=== PATIENT | female | born 1995 | race Caucasian/White ===

== ENCOUNTER 2019-06-11 11:07 | Emergency (ER) | payer SELFPAY ==
[~2019-06-11] VITALS: Ht 157.5 cm; Wt 70.5 kg
[2019-06-11 11:27] VITALS: TEMP 97.9
[2019-06-11] MEDS ORDERED: PHENTERMINE15 MG PO (13:07)
[2019-06-11 13:09] LABS: BASO % 0.3 % (0.0-2.0); EOS # 0.1 (0.0-0.7); EOS % 1.2 % (0-4.0); GRAN # 7.6 (1.4-6.5); GRAN % 67.8 % (42.2-75.2); HEMATOCRIT 43.6 % (37.0-47.0); HEMOGLOBIN 14.5 g/dl (12.5-16.0); LYMPH # 2.9 (1.2-3.4); LYMPH % 26.3 % (20.0-51.0); MEAN CELL VOLUME 87 fl (80.0-100.0); MEAN CORPUSCULAR HEMOGLOBIN 29 pg (27.0-31.0); MEAN CORPUSCULAR HGB CONC 33 g/dl (33.0-37.0); MEAN PLATELET VOLUME 9.3 fl (7.4-10.4); MONO # 0.5 (0.1-0.6); MONO % 4.1 % (1.7-9.3); PLATELET COUNT 400 K/mm3 (130-400); RED BLOOD COUNT 5.01 M/mm3 (4.10-5.30); REDCELL DISTRIBUTION WIDTH-CV 12.6 % (11.5-14.5)
[2019-06-11 13:20] LABS: ALBUMIN 5.1 gm/dL (3.5-5.0); BILIRUBIN,TOTAL 0.5 mg/dL (0.0-1.0); C-REACTIVE PROTEIN 1.6 mg/dL (0.0-0.9); CALCIUM 10.3 mg/dL (8.4-10.2); CREATININE, serum 0.56 (0.52-1.25); POTASSIUM 4.2 mmol/L (3.4-5.0); TOTAL PROTEIN 9.2 gm/dL (6.4-8.2)
[2019-06-11 13:51] LABS: COLLECTION METHOD CLEAN CATCH
[2019-06-11 13:57] LABS: MUCOUS Present /lpf; PH 6 (5-8); URINE APPEARANCE Clear; URINE BACTERIA Rare /hpf; URINE BILIRUBIN Negative (NEGATIVE); URINE BLOOD Negative (NEGATIVE); URINE COLOR Yellow; URINE GLUCOSE Negative (NEGATIVE); URINE KETONE Trace (NEGATIVE); URINE LEUKOCYTE ESTERASE Negative (NEGATIVE); URINE NITRATE Negative (NEGATIVE); URINE PROTEIN(semi-quant) Negative (NEGATIVE); URINE UROBILINOGEN Negative (NEGATIVE)
[2019-06-11 14:41] VITALS: BP 135/75; PULSE 80
== END 2019-06-11 14:41 | disposition home or self-care (01) ==
LOC: COL.ER 11:07
PROVIDERS: Physician Assistant
DX: R10.11 Right upper quadrant pain (principal)
CPT/HCPCS: J2405; J7030

== ENCOUNTER 2021-11-05 18:52 | Emergency (ER) | payer SELFPAY ==
[~2021-11-05] VITALS: Ht 157.5 cm; Wt 77.3 kg
[~2021-11-05 18:52] MED LIST: PHENTERMINE15 MG PO
[2021-11-05 19:01] VITALS: TEMP 97.2
[2021-11-05 19:41] LABS: COLLECTION METHOD CLEAN CATCH
[2021-11-05 19:56] LABS: MUCOUS Present (NOT PRESENT); PH 7 (5-8); SQUAMOUS EPITHELIAL 0-2 /hpf (0-10); URINE APPEARANCE Clear (CLEAR/HAZY); URINE BACTERIA Rare /hpf (NONE SEEN); URINE BILIRUBIN Negative (NEGATIVE); URINE BLOOD Negative (NEGATIVE); URINE COLOR Straw (YELLOW); URINE GLUCOSE Negative (NEGATIVE); URINE KETONE Negative (NEGATIVE); URINE LEUKOCYTE ESTERASE Negative (NEGATIVE); URINE NITRATE Negative (NEGATIVE); URINE PROTEIN(semi-quant) Negative (NEGATIVE); URINE RBC 0-2 /hpf (0-2); URINE UROBILINOGEN Negative (NEGATIVE)
[2021-11-05 20:03] LABS: BASO % 0.2 % (0.0-2.0); EOS # 0.1 K/mm3 (0.0-0.7); EOS % 1.2 % (0.0-4.0); GRAN # 6.7 K/mm3 (1.4-6.5); HEMOGLOBIN 11.3 g/dl (12.5-16.0); LYMPH % 28.5 % (20.0-51.0); MEAN CELL VOLUME 85 fl (80.0-100.0); MEAN CORPUSCULAR HEMOGLOBIN 29 pg (27-31); MEAN CORPUSCULAR HGB CONC 34 g/dl (33.0-37.0); MEAN PLATELET VOLUME 9.1 fl (7.4-10.4); MONO # 0.6 K/mm3 (0.1-0.6); MONO % 5.8 % (1.7-9.3); PLATELET COUNT 335 K/mm3 (130-400); REDCELL DISTRIBUTION WIDTH-CV 13.2 % (11.5-14.5)
[2021-11-05 20:14] LABS: HEMATOCRIT 33.2 % (37.0-47.0)
[2021-11-05 20:28] LABS: ALBUMIN 3.7 gm/dL (3.5-5.0); BILIRUBIN,TOTAL 0.2 mg/dL (0.2-1.2); CALCIUM 9.6 mg/dL (8.4-10.2); CREATININE, serum 0.56 mg/dL (0.57-1.11); POTASSIUM 3.9 mmol/L (3.5-4.5); TOTAL PROTEIN 7.5 gm/dL (6.2-8.1)
[2021-11-05 21:39] VITALS: BP 129/72; PULSE 82
== END 2021-11-05 21:39 | disposition home or self-care (01) ==
LOC: COL.ER 18:52
PROVIDERS: Emergency Medicine
DX: O26.852 Spotting complicating pregnancy, second trimester (principal); Z3A.14 14 weeks gestation of pregnancy

== ENCOUNTER 2022-04-04 21:09 | Outpatient (CLI) | payer OTHER ==
[~2022-04-04] VITALS: Ht 157.5 cm; Wt 88.2 kg
--- NOTE | 2022-04-04 21:20 | NUR ---
2119 - PATIENT AMBULATORY TO R4 ACCOMPANIED BY SPOUSE. PATIENT COMPLAINS OF CONTRACTIONS THAT STARTED AROUND 0400 THIS MORNING. PATIENT DENIES LEAKING OF FLUID OR BLOODY SHOW. PATIENT REPORTS GOOD MOVEMENT. PLAN OF CARE REVIEWED. QUESTIONS ANSWERED. 2129 - PATIENT ON MONITOR. 2134 - SVE PERFORMED. WILL CONTINUE TO MONITOR. CARE ONGOING.
[2022-04-04] MEDS ORDERED: PRENATAL TABLET PO (21:30)
[2022-04-04] MEDS ORDERED: NATURAL IRON65 MG (21:30)
[2022-04-04] MEDS ORDERED: ASPIRIN 81M81 MG/TA2 PO (21:30)
[2022-04-04 22:00] VITALS: BP 118/71; PULSE 106; TEMP 98.5
[2022-04-04 22:30] VITALS: PULSE 92
[2022-04-04 23:00] VITALS: PULSE 94
--- NOTE | 2022-04-04 23:45 | NUR ---
2345 - PATIENT EDUCATED ON DISCHARGE INSTRUCTIONS TO CONTINUE WATCHING FOR CONTRACTIONS TO GET LONGER,STRONGER AND CLOSER TOGETHER. PATIENT ALSO INSTRUCTED TO STAY HYDRATED AND REST. PATIENT VERBALIZES UNDERSTANDING. QUESTIONS ANSWERED. SPOUSE PRESENT FOR TEACHING. PATIENT AND SPOUSE AMBULATORY OFF UNIT ACCOMPANIED BY THIS RN.
== END 2022-04-04 23:45 | disposition home or self-care (01) ==
LOC: LDRO 21:09
DX: O62.9 Abnormality of forces of labor, unspecified (principal); Z3A.38 38 weeks gestation of pregnancy

== ENCOUNTER 2023-08-05 06:50 | Day surgery (SDC) | payer OTHER ==
[~2023-08-05] VITALS: Ht 157.5 cm; Wt 75.9 kg
[2023-08-05 06:34] VITALS: BP 108/67; PULSE 90; TEMP 97.9
[~2023-08-05 06:50] MED LIST changes: +ASPIRIN 81M81 MG/TA2 PO; +NATURAL IRON65 MG; +PRENATAL TABLET PO; +ZOFRAN ODT4 MG PO
[2023-08-05] MEDS ORDERED: PROBIOTIC DIGE1 EACH PO (06:54)
[2023-08-05] MEDS ORDERED: MELATONIN5 M1 PO (06:55)
[2023-08-05] MEDS ORDERED: QSYMIA 3.75 MG PO (07:04)
[2023-08-05] MEDS ORDERED: NORCO 325 MG-51 TAB PO (08:50)
[2023-08-05 09:35] VITALS: BP 96/50; PULSE 86; TEMP 97.7
[2023-08-05 09:50] VITALS: BP 87/50; PULSE 86
[2023-08-05 10:05] VITALS: BP 98/51; PULSE 84
[2023-08-05 10:20] VITALS: BP 98/49; PULSE 80
[2023-08-05 10:35] VITALS: BP 104/54; PULSE 84
--- NOTE | 2023-08-05 10:50 | NUR ---
0935 RETURNS TO ROOM 8 PER CART. DROWSY, AROUSES SPONTANEOUSLY. HOB ELEVATED 30 DEGREES. RESP UNLABORED. VITAL SIGNS OBTAINED. ABD SOFT. BANDAID X 3 SITES CLEAN DRY AND INTACT. REPORTS MILD DISCOMFORT. CALL LIGHT AT SIDE. 0950 DOZING, AROUSES EASILU 1010 AWAKE, TOLERATES PO WATER AND JUICE WITHOUT NAUSEA 1015 DISCHARGE INSTRUCTIONS REVIEWED. PATIENT VERBALIZES UNDERSTANDING. COPY PROVIDED IN DISCHARGE FOLDER 1025 REPORTS SLIGHT NAUSEA. NO VOMITTING. HOB LOWERED TO 30 DEGREES. COOL CLOTH TO FOREHEAD. LIGHTS DIMMED 1040 AROUSES SPONTANEOUSLY. DENIES NAUSEA NOW. HOB ELEVATED 60 DEGREES. 1045 SITS ON EDGE DRESSES SELF
== END 2023-08-05 10:52 | disposition home or self-care (01) ==
LOC: SDCO 06:50
DX: K80.10 Calculus of gallbladder with chronic cholecystitis without obstruction (principal)
CPT/HCPCS: J0690; J1100; J1885; J2405; J2704; J2710; J3010; J7120